=== PATIENT | male | born 1930 | race Caucasian/White ===

== ENCOUNTER → 2017-05-28 | Emergency (ER) | payer MEDICARE, OTHER ==
[~2017-05-28] VITALS: Ht 175.3 cm; Wt 100.7 kg
[~2017-05-28] MED LIST: BACLOFEN10 MG PO; BENAZEPRIL HCL10 MG PO; KEPPRA500 MG PO; LEVOTHYROXINE150 MCG PO; OXCARBAZEPINE300 MG PO; OXYCODONE HCL5 MG PO; RANITIDINE HCL150 MG PO; SIMVASTATIN20 MG PO; TAMSULOSIN HCL0.4 MG PO; ZOFRAN ODT4 MG PO
--- NOTE | 2017-05-28 22:14 | EKG ---
[facility] [address] [place], [place] [address] Signed Sinus rhythm with 1st degree AV block Nonspecific ST and T wave abnormality Abnormal ECG No previous ECGs available Confirmed by DARIEN NUNES MD ([id number] on 05/28/2017 10:14:36 PM Electronically Signed By: DARIEN NUNES MD 05/28/17 2214 PATIENT NAME: SUMANTH STEPHENS FABI Electrocardiogram DATE OF : [birth year] PHYSICIAN: DARIEN NUNES MD REPORT #: [id number] REPORT IS CONFIDENTIAL AND NOT TO BE RELEASED WITHOUT AUTHORIZATION
== END ==
LOC: ED 09:29
DX: I62.00 Nontraumatic subdural hemorrhage, unspecified (principal); K21.9 Gastro-esophageal reflux disease without esophagitis; E03.9 Hypothyroidism, unspecified; I10 Essential (primary) hypertension; Z87.891 Personal history of nicotine dependence; Z90.49 Acquired absence of other specified parts of digestive tract; Z88.7 Allergy status to serum and vaccine; Z79.899 Other long term (current) drug therapy
CPT/HCPCS: 70450; 71010; 80053; 84484; 85025; 85610; 85730; 93005; 93010; 96374; 99291; J1953